=== PATIENT | male | born 1990 | race Caucasian/White ===

== ENCOUNTER 2019-02-27 16:48 | Emergency (ER) | payer OTHER, SELFPAY ==
[2017-05-23 15:23] VITALS: BMI 27.4
[2019-02-27 16:49] VITALS: BP 138/79; PULSE 105; RESP 16; TEMP 36.8; O2SAT 95; BMI 26.4
--- NOTE | 2019-02-27 18:10 | ED.VIS.GI ---
History of Present Illness Chief Complaint: Fever Informant: Patient - Abdominal Pain/Flank Pain Onset: Days - 2-3 Context: Gradual Onset Timing: Continuous Quality: Cramping Location: - - lower abd Current Severity: Mild Maximum Severity: Mild Worsened by: - - vomiting Relieved by: - - cramping relieved after BM - Nausea/Vomiting/Emesis GI Symptom: Nausea, Vomiting Severity: Severe - can't keep anything down - Diarrhea/Melena/Hematochezia GI Symptom: Diarrhea. Negative for: Melena, Hematochezia Onset: Days - 2 Severity: Severe Associated Symptoms: Negative for: Dysuria, Frequency, Hematuria, Urgency Narrative: Subjective fevers, vomiting or diarrhea along with some lower abdominal cramping. No suspicious food ingestions, recent travel out of the area or country since 2 months ago. No known sick contacts with similar symptoms. He is also had a cough that has become productive of some mucus, no blood. No dyspnea. He is healthy otherwise. Denies any hematemesis or hematochezia. No prior abdominal surgeries. Past Medical History - Allergies and Home Meds Allergies/Adverse Reactions: Allergies No Known Allergies Allergy (Verified 02/27/19 17:44) Primary Care Physician: Angus Cantu MD [Primary Care Provider] - Past Medical History: None Surgical History: - - No abdominal surgeries Lives: Spouse/ Significant Other Smoking Status: Never smoker Alcohol: None Review of Systems General: Reports: Fever, Malaise. Denies: Chills, Sweats Eyes: Denies: Visual changes - bilaterally, Diplopia ENT: Denies: Rhinorrhea, Sore throat Cardiovascular: Denies: Chest pain, Palpitations Respiratory: Reports: Cough, Sputum. Denies: Dyspnea, Dyspnea on exertion Gastrointestinal: Reports: Abdominal pain, Nausea, Vomiting, Diarrhea. Denies: Melena, Hematochezia Genitourinary: Denies: Dysuria, Hematuria, Frequency Musculoskeletal: Denies: Back pain, Swelling, Extremity Pain Skin: Denies: Rash, Wounds Neurological: Denies: Headache, Weakness, Numbness Physical Exam Vital Signs/Narrative: Vital Signs Temp Pulse Resp BP Pulse Ox 02/27/19 16:49 98.3 F 105 H 16 138/79 H 95 Inital Vital Signs reviewed: Yes General: Well nourished, Well developed, No Acute Distress Head: Normocephalic, Atraumatic Eyes: Perrl, EOMI ENT: Moist mucous membranes, No rhinorrhea Neck: Supple, Nontender Cardiovascular: Regular rate, Regular rhythm, No murmurs, Tachycardia - Mild Respiratory: No distress, CTA bilaterally, Chest nontender Abdomen: Soft, Nontender, Nondistended, No masses, Hyperactive bowel sounds Back: Nontender, Normal Inspection. Negative for: CVA tenderness Extremities: Nontender, No edema Skin: Normal color, No rash, No Trauma Neurological: Alert, Oriented x3, Cranial nerves II-XII grossly intact, Normal Strength, Normal Sensation Psychological: Normal affect, Normal Mood Diagnostic/Tx/Re-eval Impressions Chest X-Ray 02/27/19 18:23 IMPRESSION: Faint lingular opacity suspicious for acute pneumonia. Electronically Signed: Marcy Tripp MD at 18:38 EST Tel , Service support , 02/27/19 18:23 Chest PA and Lateral [RAD] Stat Laboratory Results 02/27/19 02/27/19 18:10 18:10 WBC 13.8 H RBC 5.02 Hgb 15.2 Hct 44.5 MCV 88.6 MCH 30.3 MCHC 34.2 RDW Std Deviation 35.4 RDW Coeff of Raudel 11.0 L Plt Count 259 MPV 9.1 Immature Gran % (Auto) 0.300 Neut % (Auto) 69.0 Lymph % (Auto) 16.3 L [place] % (Auto) 13.9 H Eos % (Auto) 0.1 Baso % (Auto) 0.4 Absolute Neuts (auto) 9.5 H Absolute Lymphs (auto) 2.25 Nucleated RBC % 0 Differential Comment SCANNED Diff Path Review May foll Sodium 138 Potassium 3.5 Chloride 103 Carbon Dioxide 27.0 Anion Gap 8 BUN 15 Creatinine 1.25 Estim Creat Clear Calc 83.73 Est GFR (MDRD) Af Amer 89 Est GFR (MDRD) Non-Af 74 BUN/Creatinine Ratio 12.0 Glucose 128 H Calcium 9.3 Total Bilirubin 1.30 H AST 16 ALT 16 Alkaline Phosphatase 59 Total Protein 8.0 Albumin 3.9 Globulin 4.1 Albumin/Globulin Ratio 1.0 - Medical Decision Making After IV fluids, Bentyl, Zofran, he is feeling better and able to keep down some fluids. Chest x-ray shows suspicion for a lingular infiltrate. Will cover for atypicals here given the GI symptoms, with Levaquin. If he can keep down oral pills we will give it to him orally and discharge him on that along with phenergan and Bentyl. He wanted a dose of cough medicine here which was given. He was not able to have any diarrhea to send for bacterial enteric panel, which he is at low risk for. He is advised to take a probiotic or eat yogurt at home, I feel he can be safely treated as an outpatient and follow-up closely with his doctor. He is comfortable with this plan and discussed reasons to return. ED Disposition - Plan for ED Patient: Disposition: Home or Assisted Living Diagnosis: Community acquired pneumonia, Nausea vomiting and diarrhea, Mild dehydration Instructions: GASTROENTERITIS, Viral (6y-Adult), PNEUMONIA (Adult) Prescriptions: Dicyclomine HCl [Bentyl] 10 - 20 mg PO . Q4-6H PRN #20 cap PRN Reason: abdominal pain Prescription Printed Levofloxacin [Levaquin] 750 mg PO DAILY #5 tab Prescription Printed proMETHazine tablet [Phenergan] 25 mg PO Q6H PRN PRN #10 tab PRN Reason: Nausea Prescription Printed Referrals: Angus Cantu MD [Primary Care Provider] - 3-5 Days
[2019-02-27] MEDS: 0.9% Normal Saline 1,000 ML 999 ML IV (18:19)
[2019-02-27] MEDS: Ondansetron 4 MG/2 ML Vial IV (18:20)
--- NOTE | 2019-02-27 18:23 | RAD_ITS ---
STUDY: X-RAY CHEST REASON FOR EXAM: Male, 28 years old. Nausea vomiting fever. TECHNIQUE: PA and lateral chest. COMPARISON: None. FINDINGS: Faint increased density in the lingula on PA and lateral views. The lungs are otherwise clear. There is no demonstrated pleural abnormality. Normal size heart. Normal mediastinum and denny. Normal visualized pulmonary arteries. Normal visualized aortic arch and descending thoracic aorta. Normal visualized thoracic spine. Normal visualized ribs, clavicles, and shoulders. There is no demonstrated abnormality of the visualized soft tissue structures of the upper abdomen. RAD/Chest PA and Lateral IMPRESSION: Faint lingular opacity suspicious for acute pneumonia. Electronically Signed: Marcy Tripp MD at 18:38 EST Tel , Service support ,
[2019-02-27 18:24] LABS: Absolute Lymphocyte Count 2.25 X10^3/uL (0.83-4.51); Absolute Neutrophil Count 9.5 X10^3/uL (2.0-7.7); Basophil# 0.05 X10^3/uL; Basophil% 0.4 % (0-1); Eosinophil# 0.02 X10^3/uL; Eosinophils% 0.1 % (0-5); Hematocrit 44.5 % (40-54); Hemoglobin 15.2 g/dL (13.0-16.5); Lymphocyte # 2.25 X10^3/ul (4.0); Lymphocyte % 16.3 % (19-41); Mean Corp Hgb Conc 34.2 g/dL (32-36); Mean Corpuscular Hgb 30.3 pg (27.0-32.0); Mean Corpuscular Volume 88.6 fL (80-94); Mean Platelet Vol. 9.1 fl (6.2-12.0); Monocyte# 1.91 X10^3/uL; Monocyte% 13.9 % (0-10); NRBC Flagged by Analyzer 0 % (0-5); Neutrophil # 9.51 X10^3/uL (2.7-7.7); POSITIVE DIFFERENTIAL YES; Platelet Count 259 K/mm3 (150-450); RBC Distribution Width SD 35.4 fl (35.1-43.9); Red Blood Count 5.02 M/mm3 (4.6-6.2); White Blood Count 13.8 K/mm3 (4.4-11.0)
[2019-02-27 18:39] LABS: Differential Indicated SCAN CRITERIA MET
[2019-02-27] MEDS: Dicyclomine 20 MG/2 ML Vial IM (18:39)
[2019-02-27 18:40] LABS: AST(SGOT) 16 U/L (15-37); Alanine Aminotransfer ALT/SGPT 16 U/L (16-61); Albumin, Serum 3.9 g/dL (3.2-5.0); Alkaline Phosphatase 59 U/L (45-117); Anion Gap 8 (5-15); BUN 15 mg/dL (7-18); Calcium,Total 9.3 mg/dL (8.5-10.1); Chloride 103 mmol/L (98-107); Creatinine, Serum 1.25 mg/dL (0.70-1.30); EST Glomerular Filtration Rate 74 mL/min (>60); Est Glom Filt Rate - Afr Amer 89 mL/min (>60); Estimated Creatinine Clearance 83.73 ml/min; Globulin 4.1 g/dL (2.2-4.2); Glucose 128 mg/dL (74-106); Potassium 3.5 mmol/L (3.5-5.1); Sodium Level 138 mmol/L (136-145)
[2019-02-27 19:08] LABS: Differential Comment SCANNED
[2019-02-27] MEDS: guaiFENesin Dm 10 ML UDC PO (19:16)
[2019-02-27 19:18] VITALS: BP 95/59; PULSE 79; RESP 18; O2SAT 99
[2019-02-27] MEDS: levoFLOXacin IV 750 MG/150 ML BAG 100 MG IV (19:46)
[2019-02-27 21:50] VITALS: BP 101/62; PULSE 92; RESP 17; O2SAT 97
[2019-02-28 13:54] LABS: Pathologist Review Reviewed
== END 2019-02-27 21:52 | disposition home or self-care (01) ==
PROVIDERS: Emergency Provider Emergency Medicine; Family Provider Internal Medicine; PCP Internal Medicine
DX: J18.9 Pneumonia, unspecified organism (principal); R11.2 Nausea with vomiting, unspecified; R19.7 Diarrhea, unspecified; E86.0 Dehydration
CPT/HCPCS: 71046; 80053; 85025; 96361; 96365; 96366; 96372; 96374; 99284; J7030; J7040; J2405

== ENCOUNTER 2021-03-15 17:58 | Emergency (ER) | payer OTHER, SELFPAY ==
[2021-03-15 17:59] VITALS: BP 143/72; PULSE 103; RESP 24; TEMP 37.1; O2SAT 95; BMI 27.4
--- NOTE | 2021-03-15 19:19 | EDS_ITS ---
HPI History of Present Illness Chief Complaint: Shortness of Breath Informant: patient Onset/Context/Timing Onset: Days Context: Gradual Onset Narrative Narrative: Patient presents stating that he needs a new prescription for an antibiotic. Patient has had URI-like symptoms since the . He was seen by his PCP yesterday and diagnosed with pneumonia. He received an x-ray today but does not know the result. Patient has difficulty swallowing pills and advised his doctor that he needed a liquid medicine. Liquid Zithromax was written, however per the there are no pharmacies in town that have this in stock. PFSH PFSH Medical History No active medical problems Pneumonia Home Medications dicyclomine 10 - 20 mg PO . Q4-6H PRN #20 cap 02/27/19 [Rx Last Taken Unknown] levofloxacin 750 mg PO DAILY #5 tab 02/27/19 [Rx Last Taken Unknown] promethazine 25 mg PO Q6H PRN PRN #10 tab 02/27/19 [Rx Last Taken Unknown] amoxicillin-pot clavulanate [Augmentin] 17.5 ml PO BID 10 Days #350 ml 03/15/21 [Rx Last Taken Unknown] Allergy/AdvReac Type Severity Reaction Status Date / Time No Known Allergies Allergy Verified 02/27/19 17:44 Family History Mother Bleeding disorder Grandfather Prostate cancer Grandfather CVA (cerebral vascular accident) Grandmother Diabetes Surgical History No history of previous surgery Social History Smoking Status: Never smoker alcohol intake: never substance use type: does not use ROS ROS ED Constitutional Constitutional ED: Denies chills or sweats Eyes Eyes: Denies blurry vision ENT ENT ED: Reports other Details: Congestion ; Denies rhinorrhea Cardiovascular Cardiovascular: Denies chest pain Respiratory/Chest Respiratory/Chest: Reports cough, dyspnea and sputum Gastrointestinal Gastrointestinal: Denies abdominal pain, diarrhea or vomiting Genitourinary Genitourinary ED: Denies dysuria Musculoskeletal Musculoskeletal: Denies myalgias Neurologic Neurologic: Denies headache(s) Allergic/Immunologic Allergic/Immunologic ED: Denies urticaria EXAM Physical Exam Const Vital Signs: 03/15/21 17:59 03/15/21 19:34 03/15/21 20:07 Temperature 98.8 F 98.8 F Temperature Source Oral Oral Pulse Rate 103 H 103 H Respiratory Rate 24 H 24 H 18 Respiratory Effort Normal Non-Labored Blood Pressure 143/72 H 143/72 H Blood Pressure Mean 95 95 Pulse Ox 95 95 Oxygen Delivery Method Room Air Room Air Positive well nourished and well developed General Appearance ED: well developed Eyes PERRL and EOMs intact bilaterally Neck supple Chest Wall inspection of chest normal and palpation of chest normal Resp normal respiratory effort and clear to auscultation bilaterally Cardio regular rate and regular rhythm GI normal to inspection, nondistended, normoactive bowel sounds and non-tender Palpation: soft Neuro oriented x3 Sensorium / Orientation: alert Psych mental status grossly normal Skin no rashes or lesions noted MDM MDM MDM Narrative Medical decision making narrative: I was able to look at the patient's chest x- ray on clinisync. Chest x-ray is read as mild left perihilar infiltrate. Patient given prescription for Augmentin liquid, first dose given here and filled at our pharmacy. Discharge Plan Triage Chief Complaint: Shortness of Breath ED Provider: Dominique Clifford Dx/Rx/DC Orders Clinical Impression: Pneumonia Instructions: ED Pneumonia (Adult) Prescriptions: New amoxicillin-pot clavulanate [Augmentin] 250-62.5 mg/5 mL suspension for reconstitution 17.5 ml PO BID 10 Days Qty: 350 RF: 0 No Action levofloxacin 750 MG tablet 750 mg PO DAILY Qty: 5 RF: 0 dicyclomine 10 MG capsule 10 - 20 mg PO . Q4-6H PRN (Reason: abdominal pain) Qty: 20 RF: 0 promethazine 25 MG tablet 25 mg PO Q6H PRN PRN (Reason: Nausea) Qty: 10 RF: 0 Primary Care Provider: Angus Cantu Referrals: Angus Cantu MD [Primary Care Provider] - 1 Week Disposition Disposition: Home, Self Care Discharge Date/Time: 03/15/21 20:07
[2021-03-15 19:34] VITALS: BP 143/72; PULSE 103; PULSE 82; RESP 16; RESP 24; TEMP 37.1; O2SAT 95
[2021-03-15] MEDS: Amox/Clav 400mg/5ml Susp 875 MG PO (20:06)
[2021-03-15 20:07] VITALS: RESP 18
== END 2021-03-15 20:07 | disposition home or self-care (01) ==
LOC: ED 19:32
PROVIDERS: Emergency Provider Emergency Medicine; PCP Internal Medicine
DX: J18.9 Pneumonia, unspecified organism (principal)
CPT/HCPCS: 99283

== ENCOUNTER 2021-05-16 22:17 | Emergency (ER) | payer OTHER, SELFPAY ==
[2021-05-16 22:18] VITALS: BP 109/92; PULSE 95; RESP 18; TEMP 35.7; O2SAT 98; BMI 26.6
--- NOTE | 2021-05-16 22:45 | ED.VIS.GI ---
HPI HPI - GI History of Present Illness Chief Complaint: Nausea/Vomiting/Diarrhea Informant: patient and spouse/S.O. Abdominal Pain/Flank Pain Onset: Today and Hours Context: Gradual Onset Timing: Intermittent Nausea/Vomiting/Emesis GI Symptom: Positive for Nausea and Vomiting Onset: Today and Hours Severity: Mild Diarrhea/Melena/Hematochezia GI Symptom: Positive for Diarrhea; Negative for Melena and Hematochezia Onset: Today Stool Quality: Positive for Loose Severity: Mild Associated Symptoms Associated Symptoms: Negative for Dysuria, Frequency, Hematuria and Urgency Narrative Narrative: 31-year-old male no sniffing past medical or surgical history. Today around 1:00 started having nausea, vomiting and diarrhea. Subjective fever about an hour ago. Never had documented temperature. Denies melena. No hematemesis. No abdominal pain. No one else at home is sick. He thinks it may be related to lettuce that he ate around 1:00 today. Prior similar symptoms: Yes Recent Illness/Hospitalization: No PFSH PFSH Medical History No active medical problems Pneumonia no medical history Home Medications ondansetron 4 mg PO Q6H PRN #7 tab 05/16/21 [Rx Last Taken Unknown] Allergy/AdvReac Type Severity Reaction Status Date / Time No Known Allergies Allergy Verified 05/16/21 22:20 Family History Mother Bleeding disorder Grandfather Prostate cancer Grandfather CVA (cerebral vascular accident) Grandmother Diabetes Surgical History No history of previous surgery no surgical history Social History Smoking Status: Never smoker alcohol intake: never substance use type: does not use ROS ROS ED ROS Narrative Nausea, vomiting and diarrhea. Review of Systems ROS Unobtainable: Denies due to encephalopathy Constitutional Constitutional ED: Reports fever(s) and subjective ENT ENT ED: Denies ear pain, rhinorrhea or sore throat Cardiovascular Cardiovascular: Denies chest pain or palpitations Respiratory/Chest Respiratory/Chest: Denies cough or dyspnea Gastrointestinal Gastrointestinal: Reports diarrhea, nausea and vomiting; Denies abdominal pain, constipation or melena Genitourinary Genitourinary ED: Denies dysuria Musculoskeletal Musculoskeletal: Denies arthralgias or myalgias Integumentary Denies rash Neurologic Neurologic: Denies headache(s) Psychiatric Psychiatric: Denies depression Endocrine Endocrinology: Denies polyuria Hematologic/Lymphatic Hematologic/Lymphatic: Denies easy bruising Allergic/Immunologic Allergic/Immunologic ED: Denies urticaria EXAM Physical Exam Narrative Exam Narrative: 31-year-old male no acute distress vital signs stable afebrile. Pulse ox 90% on room air no hypoxia. He does not look septic or toxic. He does not look dehydrated. HEENT exam unremarkable. Moist use membranes. Neck nontender. No lymphadenopathy. Lungs clear to auscultation bilaterally. Heart regular rhythm rate about 90 no murmur. Abdomen soft, nontender, nondistended normal bowel sounds no peritoneal signs. No hernia or mass. No distention. No signs of obstruction. Both the right upper and right lower quadrants are completely nontender. Moving all 4 extremities. Nontender no edema. Back nontender. Neurologically awake and alert. No focal motor deficits. Const Vital Signs: 05/16/21 22:18 Temperature 96.2 F L Temperature Source Temporal Pulse Rate 95 Respiratory Rate 18 Blood Pressure 109/92 H Blood Pressure Mean 97 Pulse Ox 98 Oxygen Delivery Method Room Air Positive well nourished and well developed; Negative for obese, cachectic, contractures or unkempt General Appearance ED: well developed and NAD; Negative for unkempt, cachectic, contractures or pallor Nutritional Appearance: Negative for cachectic or obese HEENT Reports moist mucous membranes normocephalic and atraumatic Eyes PERRL and EOMs intact bilaterally Neck no lymphadenopathy, supple and no JVD General: Negative for tenderness Resp normal respiratory effort and clear to auscultation bilaterally Auscultation: Negative for rales, rhonchi or wheezes Cardio regular rate, regular rhythm, S1 normal heart sound, S2 normal heart sound and no murmurs GI non-tender, non-distended and no masses Auscultation: normoactive bowel sounds Palpation: soft; Negative for tender, guarding, rigid or rebound tenderness present Back/Spine no CVA tenderness General Back: Negative for CVA tenderness Cervical Spine: Negative for cervical spine tenderness Thoracic Spine / Upper Back: Negative for thoracic spinal tenderness Lumbar Spine / Lower Back: Negative for lumbar spinal tenderness Extremity full ROM General Extremety ED: Negative for edema or tenderness General Extremity: Negative for edema Neuro moves all extremities Sensorium / Orientation: alert, oriented to person, oriented to place and oriented to time; Negative for orientation impaired, confused, lethargic or stuporous Motor Exam: strength 5/5 throughout Psych mental status grossly normal and thought process normal Appearance: Negative for unkempt Attitude: No agitated Mood & Affect: Negative for depressed or tearful Skin no wounds General Skin Exam: Negative for jaundice or pallor Lesions: no lesions Rashes: no rashes and No rashes noted MDM MDM MDM Narrative Medical decision making narrative: 31-year-old male with nausea vomiting diarrhea suspect viral gastritis could be secondary to food poisoning. Currently clinically looks well. He is not dehydrated. He does not need IV fluids or labs. Be given a p.o. Zofran and p.o. fluid challenge if he does well be discharged home with Zofran. Repeat exam at 11:16 PM patient is doing well. Abdomen is benign. After the Zofran has been able to hold down p.o. fluids. They are comfortable being discharged home. He will be discharged with a prescription for Zofran. Discharge Plan Triage Chief Complaint: Nausea/Vomiting/Diarrhea Other Complaint: Nausea/Vomiting ED Provider: Philip Gomes Dx/Rx/DC Orders Clinical Impression: Viral gastroenteritis, Food poisoning Instructions: Foodborne Illness (Food Poisoning), ED Gastroenteritis, Viral (Adult) Prescriptions: New ondansetron 4 mg tablet,disintegrating 4 mg PO Q6H PRN (Reason: nausea and vomiting) Qty: 7 RF: 0 Primary Care Provider: Angus Cantu Referrals: Angus Cantu MD [Primary Care Provider] - 3-5 Days if not improving Activity Restrictions/Additional Instructions: Plenty of fluids and rest. Start with water, Gatorade and 7-Up and increase your diet slowly. If you are unable to keep fluids down if you are feeling dehydrated return for IV fluids. Zofran as needed for nausea. You may swallow the pills are too nauseated let it dissolve under your tongue. Follow-up if not improving or return if feeling worse. This should progressively get better over the next 12 to 72 hours. This is most likely a viral gastroenteritis if it is food poisoning they are basically treated the same way and that should improve. Disposition Disposition: Home, Self Care
[2021-05-16] MEDS: Ondansetron ODT 4 MG Tablet PO (22:47)
== END 2021-05-16 23:50 | disposition home or self-care (01) ==
PROVIDERS: Emergency Provider Emergency Medicine; PCP Internal Medicine; Visit Provider Emergency Medicine
DX: A08.4 Viral intestinal infection, unspecified (principal); A05.9 Bacterial foodborne intoxication, unspecified
CPT/HCPCS: 99283

== ENCOUNTER → 2024-07-23 | Outpatient (CLI) | payer OTHER, SELFPAY ==
[2024-07-23 12:50] LABS: Absolute Lymphocyte Count 3.66 X10^3/uL (0.83-4.51); Absolute Neutrophil Count 4.8 X10^3/uL (2.0-7.7); Basophil# 0.04 X10^3/uL; Basophil% 0.4 % (0-1); Eosinophil# 0.21 X10^3/uL; Eosinophils% 2.2 % (0-5); Hematocrit 43.8 % (40-54); Lymphocyte # 3.66 X10^3/ul (0.83-4.51); Mean Corp Hgb Conc 34.2 g/dL (32-36); Mean Corpuscular Hgb 30.5 pg (27.0-32.0); Mean Corpuscular Volume 89.2 fL (80-94); Mean Platelet Vol. 9.1 fl (6.2-12.0); Monocyte# 0.88 X10^3/uL; Monocyte% 9.1 % (0-10); NRBC Flagged by Analyzer 0 % (0-5); Neutrophil # 4.82 X10^3/uL (2.7-7.7); Neutrophil % 50.1 % (47-70); Platelet Count 326 K/mm3 (150-450); RBC Distribution Width CV 11.6 % (11.6-14.6); RBC Distribution Width SD 37.2 fl (35.1-43.9); Red Blood Count 4.91 M/mm3 (4.6-6.2); White Blood Count 9.6 K/mm3 (4.4-11.0)
[2024-07-23 12:51] LABS: Color, Urine Yellow (Yellow); Glucose, Dipstick Normal (Normal); Ketone-Dipstick Negative (Negative); Leukocyte Esterase-Dipstick Negative /ul (Negative); Nitrite-Dipstick Negative (Negative); Occult Blood-Urine 10 /ul (Negative); Protein-Dipstick 15 mg/dl (Negative); Urine Bilirubin Dipstick Negative (Negative); Urine Clarity Clear (Clear); Urine Urobilinogen Normal (Normal)
[2024-07-23 16:51] LABS: Cholesterol 220 mg/dL (<=200); High Density Lipoprotein 69 mg/dL; Low Density Lipoprotein Calc. 133 mg/dL; Thyroid Stim Hormone (TSH) 0.896 uIU/mL (0.300-4.200); Triglycerides 89 mg/dL; Very Low Density Lipoprotein 18 mg/dL (5-40); Vitamin B12 374 pg/mL (180-914); Vitamin D,25 Hydroxy 64.1 ng/mL (30-100); cholesterol:hdl ratio screen 3.19
[2024-07-23 17:57] LABS: ALB/GLOB Ratio 1.6 RATIO (0.9-2.4); AST(SGOT) 26 U/L (<=37); Alanine Aminotransfer ALT/SGPT 21 U/L (<=46); Albumin, Serum 4.7 g/dL (3.5-5.0); Alkaline Phosphatase 61 U/L (40-129); Anion Gap 13 (5-15); BUN 17 mg/dL (4-19); BUN/Creat Ratio 15.4 RATIO (10-20); Calcium,Total 9.7 mg/dL (7.6-11.0); Carbon Dioxide 23.7 mmol/L (21.0-32.0); Chloride 103 mmol/L (98-108); EST Glomerular Filtration Rate 91 (>60); Glucose 90 mg/dL (70-99); Protein, Total 7.6 g/dL (5.9-8.4); Sodium Level 140 mmol/L (133-145); Total Bilirubin 1.01 mg/dL (0.00-1.30)
[2024-07-23 18:00] LABS: Hemoglobin A1c 5.5 % (<=5.6)
[2024-07-24 15:08] LABS: Thyroglobulin Antibody < 1.0 IU/mL (0.0-0.9); Thyroid Peroxidase AB 17 IU/mL (0-34)
== END | disposition home or self-care (01) ==
PROVIDERS: PCP Nurse Practitioner Family; Visit Provider Nurse Practitioner Family
DX: Z00.00 Encounter for general adult medical examination without abnormal findings (principal); E56.9 Vitamin deficiency, unspecified; R63.5 Abnormal weight gain
CPT/HCPCS: 36415; 80053; 80061; 81002; 82306; 82607; 83036; 84439; 84443; 85025; 86376; 86800